=== PATIENT | female | born 2000 | race Caucasian/White ===

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

== ENCOUNTER 2021-05-27 20:46 | Emergency (ER) | payer OTHER, MEDICAID ==
[~2021-05-27] VITALS: Ht 152.4 cm; Wt 72.6 kg
[2021-05-27 21:19] LABS: ABSOLUTE LYMPHOCYTES 1.3 thou/uL (0.8-5.3); ABSOLUTE MONOCYTES 0.5 thou/uL (0.0-1.2); ABSOLUTE NEUTROPHILS 7.2 thou/uL (1.6-8.1); BASOPHILS 0.5 %; EOSINOPHILS 0.1 %; HEMATOCRIT 35.3 % (37.0-47.0); HEMOGLOBIN 11.5 gm/dL (12.0-15.0); LYMPHOCYTES 14.8 %; MCH 25.4 pg (26.0-34.0); MCHC 32.6 g/dL (28.0-37.0); MONOCYTES 5.7 %; NUCLEATED RBCS 0 /100WBC; PLATELET COUNT* 206 thou/uL (150-400); POLYS 78.9 %; RBC 4.53 mil/uL (4.20-5.00); RDW-CV 14.8 % (10.5-14.5); WBC 9.1 thou/uL (4.0-11.0)
[2021-05-27 21:26] LABS: CALCIUM 8.5 mg/dL (8.5-10.1); CREATININE 0.7 mg/dL (0.6-1.3); POTASSIUM 3.4 mmol/L (3.5-5.1)
[2021-05-27 21:30] LABS: ALBUMIN 3.3 g/dL (3.4-5.0); TOTAL BILIRUBIN 0.2 mg/dL (<0.1-1.0); TOTAL PROTEIN 7.1 g/dL (6.4-8.2)
[2021-05-27 22:58] LABS: URINE BILIRUBIN NEGATIVE (Negative); URINE BLOOD NEGATIVE (Negative); URINE CLARITY CLEAR; URINE COLOR YELLOW; URINE GLUCOSE-RANDOM NEGATIVE (Negative); URINE KETONES NEGATIVE (Negative); URINE LEUKOCYTES NEGATIVE (Negative); URINE NITRITE NEGATIVE (Negative); URINE PROTEIN NEGATIVE (Negative)
[2021-05-27] MEDS ORDERED: APAP W/CODEINE1 TA2 PO (23:00)
[2021-05-27] MEDS ORDERED: DOXYCYCLINE 10100 M2 PO (23:06)
[2021-05-27 23:17] VITALS: BP 137/69
== END 2021-05-27 23:39 | disposition home or self-care (01) ==
LOC: M.ERS 20:46
PROVIDERS: Physician Assistant
DX: R10.32 Left lower quadrant pain (principal); R11.10 Vomiting, unspecified; R50.9 Fever, unspecified; Z97.5 Presence of (intrauterine) contraceptive device; Z88.8 Allergy status to other drugs, medicaments and biological substances